=== PATIENT | female | born 1990 | race Two or more races ===

== ENCOUNTER 2023-07-23 08:12 | Outpatient (CLI) | payer OTHER | END 2023-07-23 08:14 | disposition home or self-care (01) | LOC: PRENATAL 08:12 | PROVIDERS: ATTEND Obstetrics & Gynecology Maternal & Fetal Medicine | DX: O35.3XX0 Maternal care for (suspected) damage to fetus from viral disease in mother, not applicable or unspecified (principal); O44.00 Complete placenta previa NOS or without hemorrhage, unspecified trimester; O43.90 Unspecified placental disorder, unspecified trimester; Z3A.26 26 weeks gestation of pregnancy ==

== ENCOUNTER 2023-10-04 06:20 | Inpatient (IN) | payer OTHER ==
[~2023-10-04] VITALS: Ht 162.6 cm; Wt 95.3 kg
[2023-10-04] MEDS ORDERED: PRENATABS RX T1 EACH PO (06:26)
[2023-10-04] MEDS ORDERED: AMPICILLIN SODIUM 1,000 MG VIAL IV SCH (06:30)
[2023-10-04] MEDS ORDERED: RINGERS SOLUTION,LACTATED 1,000 ML IV SCH (06:30)
[2023-10-04] MEDS ORDERED: AMPICILLIN SODIUM 2,000 MG VIAL IV ONE (06:30)
[2023-10-04 07:40] LABS: HEMATOCRIT 34.7 % (36.0-45.00); HEMOGLOBIN 12.1 g/dL (12.0-15.00); MEAN CELL VOLUME 84.2 fL (80.00-100.00); MEAN CORPUSCULAR HEMOGLOBIN 29.3 pg (27.00-32.0); MEAN CORPUSCULAR HGB CONC 34.8 g/dl (32.0-36.0); PLATELET COUNT 232 K/uL (150-450); RED BLOOD COUNT 4.11 M/uL (4.00-6.00); RED CELL DISTRIBUTION WIDTH 14.4 % (11.5-14.5)
[2023-10-04 07:55] LABS: INR < 0.93; PARTIAL THROMBOPLASTIN TIME 31.5 SECONDS (22.0-34.0); PROTHROMBIN TIME 9.5 SECONDS (9.0-11.5)
[2023-10-04 08:03] LABS: ALBUMIN 2.4 gm/dL (3.4-5.0); BILIRUBIN TOTAL 0.23 mg/dL (0.3-1.2); CALCIUM 8.4 mg/dL (8.5-10.1); CREATININE SERUM 0.42 mg/dL (0.55-1.02); GFR 177.15; GLOBULINA 3.6 G/DL (2.4-3.5); POTASSIUM 4.09 mEq/L (3.5-5.1)
[2023-10-04 08:09] LABS: PH,URINE 5.5 (5.0-8.0); URINE APPEARANCE Clear; URINE BILIRRUBIN Negative (NEGATIVE); URINE BLOOD Trace; URINE COLOR Dark Yellow; URINE GLUCOSE Negative (NEGATIVE); URINE LEUKOCYTE Negative; URINE NITRATE Negative; URINE PROTEIN Trace (NEGATIVE); URINE UROBILINOGEN 0.2 E.U./dl
[2023-10-04 08:10] LABS: URINE BACTERIA 162.5 uL (0.0-1933); URINE EPITHELIAL CELLS 26.5 uL (0.0-38.8); URINE RBC 28.3 uL (0.0-20.8); URINE WBC 11.2 uL (0.0-23.2)
[2023-10-04] MEDS ORDERED: MISOPROSTOL 25 MCG/4 ML GEL.W.APPL VAG ONE (09:00)
[2023-10-04] MEDS ORDERED: BETAMETHASONE ACETATE,SOD PHOS 30 MG/5 ML ML IM ONE (09:00)
[2023-10-04] MEDS ORDERED: OXYTOCIN 500 ML IV SCH (13:00)
[2023-10-04] MEDS ORDERED: MORPHINE SULFATE 4 MG/ML CARTRIDGE IV NR (13:00)
[2023-10-04] MEDS ORDERED: ERYTHROMYCIN BASE 1 GM TUBE OP ONE ×2 (19:30→19:45)
[2023-10-04] MEDS ORDERED: LIDOCAINE HCL 1% 10ML VIAL IJ ONE (19:30)
[2023-10-04] MEDS ORDERED: CHLORHEXIDINE GLUCONATE 120 ML BOTTLE TOP ONE (19:45)
[2023-10-04] MEDS ORDERED: IBUprofen 400 MG TABLET PO PRN (19:45)
[2023-10-04] MEDS ORDERED: OXYTOCIN 1,000 ML IV SCH (19:45)
[2023-10-04 20:19] LABS: ABG PH 7.258 (7.35-7.45); ABG PO2 21.3 mmHg (80-100); ABG pCO2 48.6 mmHg (35-45)
[2023-10-04 20:20] LABS: BASE EXCESS -6.1 mmol/l; BICARBONATE 21.2 mmol/l (23-25); SaO2 25.8 %; Tco2 22.7 mmol/l; o2 21 %
[2023-10-05] MEDS ORDERED: PNV,CALCIUM 72/IRON/FOLIC ACID 1 TAB TABLET PO SCH (09:00)
[2023-10-05 09:41] LABS: HEMOGLOBIN 12.8 g/dL (12.0-15.00); MEAN CELL VOLUME 83.9 fL (80.00-100.00); MEAN CORPUSCULAR HEMOGLOBIN 28.1 pg (27.00-32.0); MEAN CORPUSCULAR HGB CONC 33.5 g/dl (32.0-36.0); PLATELET COUNT 296 K/uL (150-450); RED BLOOD COUNT 4.53 M/uL (4.00-6.00); RED CELL DISTRIBUTION WIDTH 14.5 % (11.5-14.5)
== END 2023-10-06 10:55 | disposition home or self-care (01) | DRG 807 ==
LOC: LDR 06:20 → OB/GYN 19:48
PROVIDERS: ADMIT Obstetrics & Gynecology; ATTEND Obstetrics & Gynecology
PROC: 10E0XZZ Delivery of Products of Conception, External Approach (ICD-10-PCS; principal; 2023-10-04)
PROC: 0KQM0ZZ Repair Perineum Muscle, Open Approach (ICD-10-PCS; 2023-10-04)
PROC: 4A1HXCZ Monitoring of Products of Conception, Cardiac Rate, External Approach (ICD-10-PCS; 2023-10-04)
DX: O70.1 Second degree perineal laceration during delivery (principal); Z37.0 Single live birth; Z3A.36 36 weeks gestation of pregnancy; Z20.822 Contact with and (suspected) exposure to COVID-19